=== PATIENT | female | born 1940 | race Two or more races ===

== ENCOUNTER 2024-09-16 14:16 | Inpatient (IN) | payer OTHER ==
[~2024-09-16] VITALS: Ht 160 cm; Wt 68.0 kg
--- NOTE | 2024-09-16 15:24 | NUR ---
SE RECIBE PTE ALERTA Y ORIENTADA X3. REFIERE DOLOR DE GRICELDA Y ESPALDA BAJA HACE DOS MEDINA
[2024-09-16] MEDS ORDERED: KETOROLAC TROMETHAMINE 30 MG VIAL IM STA (16:37)
[2024-09-16] MEDS ORDERED: KETOROLAC TROMETHAMINE 30 MG VIAL ONE (16:51)
[2024-09-16 17:08] LABS: HEMATOCRIT 32.1 % (36.0-45.00); HEMOGLOBIN 10.6 g/dL (12.0-15.00); MEAN CELL VOLUME 81.8 fL (80.00-100.00); MEAN CORPUSCULAR HEMOGLOBIN 27.1 pg (27.00-32.0); MEAN CORPUSCULAR HGB CONC 33.1 g/dl (32.0-36.0); PLATELET COUNT 341 K/uL (150-450); RED BLOOD COUNT 3.92 M/uL (4.00-6.00); RED CELL DISTRIBUTION WIDTH 15.1 % (11.5-14.5)
--- NOTE | 2024-09-16 17:09 | NUR ---
PACIENTE EVALUADA POR QUIEN ORDENA [place] MEDICO, RN AVINASH EDUCA ACERCA DEL MISMO Y REFIERE ENTENDER. SE COLECTAN MUESTRAS DE LABORATORIO MEDIANTE MEDIDAS ASEPTICAS. SE ADMINISTRA MEDICAMENTO ANA MARIA ORDEN MEDICA.
[2024-09-16 17:24] LABS: CALCIUM 9.4 mg/dL (8.5-10.1); CREATININE SERUM 1.62 mg/dL (0.55-1.02); GFR 30.42; POTASSIUM 3.83 mEq/L (3.5-5.1)
[2024-09-16] MEDS ORDERED: SODIUM CHLORIDE 0.45 % 1,000 ML IV STA (17:49)
[2024-09-16] MEDS ORDERED: TICAGRELOR 90 MG TABLET PO STA (18:03)
[2024-09-16] MEDS ORDERED: NITROGLYCERIN IN 5 % DEXTROSE 50 MG/250 ML KIT IV STA (18:04)
[2024-09-16] MEDS ORDERED: NITROGLYCERIN IN 5 % DEXTROSE 50 MG/250 ML BOTTLE IV ONE (18:16)
--- NOTE | 2024-09-16 18:37 | NUR ---
RE-EVALUA PACIENTE. SE UBICA A PACIENTE EN CAMA #18, SE CONECTA A MONITOR CARDIACO Y OXIMETRIA DE PUL[place]. SE ORIENTA SOBRE [place] MEDICO, REFIERE ENTENDER. SE ADMINISTRAN MEDICAMENTOS ANA MARIA ORDEN MEDICA. SE COORDINA CT. SE REALIZA EKG. PACIENTE MANEJADA POR .
[2024-09-16 19:25] LABS: PARTIAL THROMBOPLASTIN TIME 28.3 SECONDS (22.0-34.0); PROTHROMBIN TIME 10.9 SECONDS (9.0-11.5)
[2024-09-16 19:30] LABS: ALT/SGPT 20 U/L (12-78); AST/SGOT 17 U/L (15-37); LDH 248 U/L (84-246); PHOSPHOKINASE CREATININE 47 U/L (26-192)
[2024-09-16] MEDS ORDERED: ACETAMINOPHEN 500 MG GEL..CAP PO PRN (22:15)
[2024-09-16] MEDS ORDERED: ASPIRIN 325 MG TABLET PO ONE (22:15)
[2024-09-16] MEDS ORDERED: ATORVASTATIN CALCIUM 40 MG TABLET PO SCH (22:16)
[2024-09-16] MEDS ORDERED: ENOXAPARIN SODIUM 60 MG/0.6 ML SYRINGE SUBCUTANEO SCH (22:16)
[2024-09-16] MEDS ORDERED: ONDANSETRON HCL 4 MG in 0.9 % SODIUM CHLORIDE 50 ML IV PRN (22:30)
[2024-09-16] MEDS ORDERED: CEFTRIAXONE SODIUM 2,000 MG in 0.9 % SODIUM CHLORIDE 100 ML IV SCH (22:34)
[2024-09-16] MEDS ORDERED: ENOXAPARIN SODIUM 60 MG/0.6 ML SYRINGE SUBCUTANEO ONE (23:06)
[2024-09-16 23:55] VITALS: BP 140/80
[2024-09-17] VITALS (12 sets, daily range): BP systolic 106–156; BP diastolic 61–89; O2SAT 96–100
[2024-09-17] MEDS ORDERED: CEFTRIAXONE SODIUM 2,000 MG VIAL ONE (00:24)
[2024-09-17 02:06] LABS: PH,URINE 5.5 (5.0-8.0); URINE APPEARANCE Clear; URINE BILIRRUBIN Negative (NEGATIVE); URINE BLOOD Trace; URINE COLOR Yellow; URINE GLUCOSE Negative (NEGATIVE); URINE KETONE Trace (NEGATIVE); URINE LEUKOCYTE Negative; URINE NITRATE Negative; URINE UROBILINOGEN 0.2 E.U./dl
[2024-09-17 02:07] LABS: URINE BACTERIA 42.8 uL (0.0-1933); URINE CAST 1.76 uL (0.0-1.40); URINE EPITHELIAL CELLS 11.2 uL (0.0-38.8); URINE RBC 6.6 uL (0.0-20.8); URINE WBC 6.4 uL (0.0-23.2)
[2024-09-17] MEDS ORDERED: NITROGLYCERIN IN 5 % DEXTROSE 250 ML IV SCH (02:30)
[2024-09-17 03:14] LABS: URINE PROTEIN 300 (NEGATIVE)
[2024-09-17 03:17] LABS: URINE MUCUS NEGATIVE; URINE YEAST FEW /hpf
[2024-09-17] MEDS ORDERED: TICAGRELOR 90 MG TABLET PO SCH ×2 (05:00→09:00)
[2024-09-17 07:20] LABS: CHOL HDL RATIO 7.3 (0-5.0); TSH 1.53 uIU/mL (0.358-3.74)
[2024-09-17] MEDS ORDERED: FAMOTIDINE/PF 20 MG in 0.9 % SODIUM CHLORIDE 8 ML IV PUSH SCH (09:00)
[2024-09-17] MEDS ORDERED: ASPIRIN 81 MG TAB.CHEW PO SCH (09:00)
[2024-09-17] MEDS ORDERED: CHLORHEXIDINE GLUCONATE 120 ML BOTTLE TOP ONE (09:54)
[2024-09-17] MEDS ORDERED: CLONAZEPAM 0.5 MG TABLET PO ONE (20:45)
[2024-09-17] MEDS ORDERED: TEMAZEPAM 15 MG CAPSULE PO SCH (21:00)
[2024-09-18] VITALS (7 sets, daily range): BP systolic 135–175; BP diastolic 74–97; O2SAT 98–100
[2024-09-18 06:40] LABS: HEMATOCRIT 31.4 % (36.0-45.00); HEMOGLOBIN 10.6 g/dL (12.0-15.00); MEAN CELL VOLUME 80.6 fL (80.00-100.00); MEAN CORPUSCULAR HEMOGLOBIN 27.3 pg (27.00-32.0); MEAN CORPUSCULAR HGB CONC 33.8 g/dl (32.0-36.0); PLATELET COUNT 346 K/uL (150-450); RED CELL DISTRIBUTION WIDTH 15.1 % (11.5-14.5)
[2024-09-18 07:07] LABS: ALBUMIN 2.4 gm/dL (3.4-5.0); BILIRUBIN TOTAL 0.25 mg/dL (0.3-1.2); CREATININE SERUM 1.77 mg/dL (0.55-1.02); GFR 27.46; MAGNESIUM 2.1 mg/dL (1.8-2.4); PHOSPHOROUS 4.6 mg/dL (2.5-4.9); POTASSIUM 3.33 mEq/L (3.5-5.1); TOTAL PROTEIN 6.4 gm/dL (6.4-8.2)
[2024-09-18 07:08] LABS: C-REACTIVE PROTEIN 12.8 MG/DL (0.00-0.29)
[2024-09-18 07:43] LABS: PLATELET ESTIMATE NORMAL (NORMAL)
[2024-09-18] MEDS ORDERED: LOSARTAN POTASSIUM 25 MG TABLET PO SCH (11:40)
[2024-09-18] MEDS ORDERED: METOPROLOL SUCCINATE 25 MG TAB.SR.24H PO SCH (11:41)
[2024-09-18] MEDS ORDERED: ENALAPRILAT DIHYDRATE 1.25 MG/ML VIAL IV PRN (11:45)
[2024-09-18] MEDS ORDERED: POTASSIUM CHLORIDE IN WATER 100 ML IV SCH (13:00)
[2024-09-18] MEDS ORDERED: NITROGLYCERIN IN 5 % DEXTROSE 50 MG/250 ML BOTTLE IV ONE (22:27)
[2024-09-19 00:39] VITALS: BP 136/79
[2024-09-19 08:00] LABS: PH,URINE 5.5 (5.0-8.0); URINE APPEARANCE Cloudy; URINE BILIRRUBIN Negative (NEGATIVE); URINE BLOOD Small; URINE COLOR Yellow; URINE KETONE Negative (NEGATIVE); URINE LEUKOCYTE Small; URINE NITRATE Negative; URINE UROBILINOGEN 0.2 E.U./dl
[2024-09-19 08:05] LABS: URINE BACTERIA 117.4 uL (0.0-1933); URINE CAST 1.91 uL (0.0-1.40); URINE EPITHELIAL CELLS 3.9 uL (0.0-38.8)
[2024-09-19 08:47] VITALS: BP 117/69; O2SAT 98
[2024-09-19 09:03] LABS: URINE GLUCOSE 100 MG/DL (NEGATIVE); URINE PROTEIN 300 (NEGATIVE)
[2024-09-19 09:04] LABS: URINE YEAST MODERATE /hpf
[2024-09-19] MEDS ORDERED: POTASSIUM CHLORIDE 10 MEQ CAPSULE PO SCH (17:00)
[2024-09-19 17:08] VITALS: BP 143/73
[2024-09-19 17:32] LABS: CALCIUM 9.1 mg/dL (8.5-10.1); CREATININE SERUM 1.74 mg/dL (0.55-1.02); GFR 28.01; POTASSIUM 3.4 mEq/L (3.5-5.1)
[2024-09-20 00:22] VITALS: BP 152/83
[2024-09-20] MEDS ORDERED: HALOPERIDOL LACTATE 5 MG/ML AMPUL IV PRN (09:15)
[2024-09-20 09:24] VITALS: BP 165/82; O2SAT 97
[2024-09-20 18:15] VITALS: BP 153/80; BP 179/82
[2024-09-21 00:30] VITALS: BP 145/80
[2024-09-21 07:10] LABS: CALCIUM 9.2 mg/dL (8.5-10.1); CREATININE SERUM 1.76 mg/dL (0.55-1.02); GFR 27.64; POTASSIUM 4.05 mEq/L (3.5-5.1)
[2024-09-21 07:20] LABS: HEMATOCRIT 29.8 % (36.0-45.00); MEAN CORPUSCULAR HEMOGLOBIN 27.2 pg (27.00-32.0); MEAN CORPUSCULAR HGB CONC 33.6 g/dl (32.0-36.0); PLATELET COUNT 383 K/uL (150-450); RED BLOOD COUNT 3.68 M/uL (4.00-6.00); RED CELL DISTRIBUTION WIDTH 14.9 % (11.5-14.5)
[2024-09-21 08:49] VITALS: BP 175/90; O2SAT 99
[2024-09-21 10:01] VITALS: BP 146/84
[2024-09-21 17:16] VITALS: BP 160/68; O2SAT 0
[2024-09-21] MEDS ORDERED: LORazepam 1 MG TABLET PO PRN (18:30)
[2024-09-22 02:13] VITALS: BP 166/88; O2SAT 99
[2024-09-22 08:00] VITALS: BP 161/86
[2024-09-22 17:44] VITALS: BP 166/90
[2024-09-23 01:00] VITALS: BP 170/92
[2024-09-23 08:17] VITALS: BP 152/83
[2024-09-23 17:14] VITALS: BP 132/73; O2SAT 97
[2024-09-24 02:31] VITALS: BP 185/86
[2024-09-24] MEDS ORDERED: LOSARTAN POTASSIUM 50 MG TABLET PO SCH (09:00)
[2024-09-24 09:14] VITALS: BP 132/74; O2SAT 99
[2024-09-24 17:37] VITALS: BP 136/63
[2024-09-25 02:33] VITALS: BP 151/79
[2024-09-25 06:44] LABS: ALBUMIN 2.8 gm/dL (3.4-5.0); BILIRUBIN TOTAL 0.31 mg/dL (0.3-1.2); CALCIUM 8.8 mg/dL (8.5-10.1); CREATININE SERUM 1.59 mg/dL (0.55-1.02); GFR 31.08; GLOBULINA 3.8 G/DL (2.4-3.5); POTASSIUM 4.13 mEq/L (3.5-5.1); TOTAL PROTEIN 6.6 gm/dL (6.4-8.2)
[2024-09-25 09:39] VITALS: BP 143/71; O2SAT 98
[2024-09-25 17:03] VITALS: BP 145/71
[2024-09-26 02:27] VITALS: BP 150/72
[2024-09-26 08:21] VITALS: BP 162/84
[2024-09-26 17:30] VITALS: BP 180/82; O2SAT 95
[2024-09-26 19:02] LABS: HEMATOCRIT 30.9 % (36.0-45.00); HEMOGLOBIN 10.2 g/dL (12.0-15.00); MEAN CELL VOLUME 81.4 fL (80.00-100.00); MEAN CORPUSCULAR HEMOGLOBIN 26.9 pg (27.00-32.0); PLATELET COUNT 348 K/uL (150-450); RED CELL DISTRIBUTION WIDTH 14.8 % (11.5-14.5)
[2024-09-27 03:29] VITALS: BP 154/88
[2024-09-27 05:37] LABS: CALCIUM 9.2 mg/dL (8.5-10.1); CREATININE SERUM 1.5 mg/dL (0.55-1.02); GFR 33.24; POTASSIUM 4.83 mEq/L (3.5-5.1)
[2024-09-27 09:04] VITALS: BP 144/67
[2024-09-27 18:42] VITALS: BP 150/64; O2SAT 99
[2024-09-28 03:08] VITALS: BP 168/74
[2024-09-28 08:56] VITALS: BP 122/56; O2SAT 98
[2024-09-28] MEDS ORDERED: METOPROLOL SUCCINATE 50 MG TAB.SR.24H PO SCH (09:00)
[2024-09-28 16:46] VITALS: BP 119/63
[2024-09-29 00:40] VITALS: BP 119/65
[2024-09-29 05:04] LABS: HEMATOCRIT 30.9 % (36.0-45.00); MEAN CELL VOLUME 83.4 fL (80.00-100.00); MEAN CORPUSCULAR HGB CONC 32.7 g/dl (32.0-36.0); PLATELET COUNT 352 K/uL (150-450); RED BLOOD COUNT 3.71 M/uL (4.00-6.00)
[2024-09-29 05:11] LABS: HEMOGLOBIN 10.1 g/dL (12.0-15.00); MEAN CORPUSCULAR HEMOGLOBIN 27.2 pg (27.00-32.0)
[2024-09-29 05:30] LABS: CALCIUM 8.9 mg/dL (8.5-10.1); CREATININE SERUM 1.8 mg/dL (0.55-1.02); GFR 26.94; POTASSIUM 4.08 mEq/L (3.5-5.1)
[2024-09-29 08:52] VITALS: BP 141/78; O2SAT 99
[2024-09-29 17:59] VITALS: BP 134/77
[2024-09-30 01:29] VITALS: BP 123/61
[2024-09-30 09:09] VITALS: BP 156/78
[2024-09-30] MEDS ORDERED: CLONAZEPAM 1 MG TABLET PO SCH ×2 (21:00)
[2024-10-01] VITALS: BP 123/72; O2SAT 97
[2024-10-01 08:23] VITALS: BP 151/81
[2024-10-01 17:06] VITALS: BP 141/73; O2SAT 99
[2024-10-02] VITALS: BP 153/94; O2SAT 95
[2024-10-02 09:26] VITALS: BP 150/71
[2024-10-02 17:23] VITALS: BP 133/62; O2SAT 97
[2024-10-03 02:17] VITALS: BP 149/75
[2024-10-03 09:02] VITALS: BP 129/69
[2024-10-03 16:18] VITALS: BP 150/77; O2SAT 99
[2024-10-03] MEDS ORDERED: NITROGLYCERIN IN 5 % DEXTROSE 50 MG/250 ML BOTTLE IV ONE (18:52)
[2024-10-03] MEDS ORDERED: NITROGLYCERIN IN 5 % DEXTROSE 250 ML IV SCH (19:15)
[2024-10-03] MEDS ORDERED: LOSARTAN POTASSIUM 50 MG TABLET PO SCH (21:00)
[2024-10-03] MEDS ORDERED: AMLODIPINE BESYLATE 5 MG TABLET PO SCH (21:00)
[2024-10-04 02:32] VITALS: BP 98/58; O2SAT 99
[2024-10-04 09:02] VITALS: BP 144/79; O2SAT 99
[2024-10-04] MEDS ORDERED: LOSARTAN POTASSIUM 100 MG TABLET PO SCH (10:31)
[2024-10-04] MEDS ORDERED: NITROGLYCERIN IN 5 % DEXTROSE 250 ML IV SCH (10:45)
[2024-10-04 15:56] LABS: ALBUMIN 3.3 gm/dL (3.4-5.0); BILIRUBIN TOTAL 0.37 mg/dL (0.3-1.2); CALCIUM 9.1 mg/dL (8.5-10.1); CREATININE SERUM 1.78 mg/dL (0.55-1.02); GFR 27.29; GLOBULINA 3.9 G/DL (2.4-3.5); POTASSIUM 5.03 mEq/L (3.5-5.1); TOTAL PROTEIN 7.2 gm/dL (6.4-8.2)
[2024-10-04 16:00] VITALS: BP 153/80; O2SAT 97
[2024-10-05 02:26] VITALS: BP 135/65
[2024-10-05 09:32] VITALS: BP 147/81; O2SAT 98
[2024-10-05 16:42] VITALS: BP 127/74; O2SAT 99
[2024-10-06 01:09] VITALS: BP 134/74; O2SAT 97
[2024-10-06 09:20] VITALS: BP 132/76; O2SAT 99
[2024-10-06 16:06] LABS: HEMATOCRIT 32.6 % (36.0-45.00); HEMOGLOBIN 10.3 g/dL (12.0-15.00); MEAN CELL VOLUME 82.8 fL (80.00-100.00); MEAN CORPUSCULAR HEMOGLOBIN 26.2 pg (27.00-32.0); MEAN CORPUSCULAR HGB CONC 31.6 g/dl (32.0-36.0); PLATELET COUNT 337 K/uL (150-450); RED BLOOD COUNT 3.94 M/uL (4.00-6.00); RED CELL DISTRIBUTION WIDTH 15.2 % (11.5-14.5)
[2024-10-06 17:59] VITALS: BP 140/69; O2SAT 98
[2024-10-06] MEDS ORDERED: ACETAMINOPHEN 325 MG TABLET PO PRN (19:15)
[2024-10-06] MEDS ORDERED: LORazepam 2 MG/ML VIAL ONE (21:46)
[2024-10-06] MEDS ORDERED: LORazepam 2 MG/ML VIAL IV PUSH STA (21:59)
[2024-10-07 01:24] VITALS: BP 187/90; O2SAT 97
[2024-10-07 01:52] VITALS: BP 130/70
[2024-10-07 05:02] LABS: ALBUMIN 3.3 gm/dL (3.4-5.0); BILIRUBIN TOTAL 0.62 mg/dL (0.3-1.2); CALCIUM 9.3 mg/dL (8.5-10.1); CREATININE SERUM 1.68 mg/dL (0.55-1.02); GFR 29.17; GLOBULINA 4.1 G/DL (2.4-3.5); POTASSIUM 4.25 mEq/L (3.5-5.1); TOTAL PROTEIN 7.4 gm/dL (6.4-8.2)
[2024-10-07 09:27] VITALS: BP 153/76; O2SAT 99
[2024-10-07 17:11] VITALS: BP 148/67; O2SAT 98
[2024-10-08 01:14] VITALS: BP 104/55
[2024-10-08 09:02] VITALS: BP 112/66
[2024-10-08 16:40] VITALS: BP 131/70; O2SAT 98
[2024-10-08] MEDS ORDERED: CLONAZEPAM 1 MG TABLET PO SCH (22:00)
[2024-10-09 00:36] VITALS: BP 135/77; O2SAT 98
[2024-10-09 09:00] VITALS: BP 132/73; O2SAT 99
[2024-10-09] MEDS ORDERED: CLONAZEPAM 0.5 MG TABLET PO SCH (21:00)
== END 2024-10-09 13:41 | disposition home or self-care (01) | DRG 280 ==
LOC: ER 14:18 → ICU-2 22:34 → MEDI 22:34 → MEDJ 22:34 → ICU 09-17 03:07 → MEDJ 09-18 18:04 → MEDI 09-30 16:48
PROVIDERS: General Practice; Internal Medicine; Internal Medicine Infectious Disease; Internal Medicine Nephrology; Student in an Organized Health Care Education/Training Program; ADMIT Internal Medicine; ATTEND Internal Medicine
PROC: BW24ZZZ Computerized Tomography (CT Scan) of Chest and Abdomen (ICD-10-PCS; principal; 2024-09-16)
PROC: B24BYZZ Ultrasonography of Heart with Aorta using Other Contrast (ICD-10-PCS; 2024-09-16)
PROC: 4A12X4Z Monitoring of Cardiac Electrical Activity, External Approach (ICD-10-PCS; 2024-09-18)
PROC: B24BYZZ Ultrasonography of Heart with Aorta using Other Contrast (ICD-10-PCS; 2024-10-03)
DX: I21.4 Non-ST elevation (NSTEMI) myocardial infarction (principal); A48.0 Gas gangrene; N17.9 Acute kidney failure, unspecified; R65.10 Systemic inflammatory response syndrome (SIRS) of non-infectious origin without acute organ dysfunction; I24.9 Acute ischemic heart disease, unspecified; I10 Essential (primary) hypertension; D72.829 Elevated white blood cell count, unspecified; F41.9 Anxiety disorder, unspecified; F32.A Depression, unspecified